=== PATIENT | male | born 1940 | race Caucasian/White ===

== ENCOUNTER 2020-11-30 06:44 | Day surgery (SDC) | payer OTHER ==
[~2020-11-30] VITALS: Ht 172.7 cm; Wt 88.5 kg
[~2020-11-30 06:44] MED LIST: AMIO200T33 PO; APIX2.5T PO; CAR3125T PO; CARV25TA55 PO; FURO40TA4 PO; GABA300C10 PO; POTA1TAB61 PO; SIMV-8 PO
[2020-11-30] MEDS ORDERED: IODIXANOL 320MG/ML 100ML BTL IV ONE (07:33)
[2020-11-30] MEDS ORDERED: LIDOCAINE 2%HCL (LOCAL ANESTH.) INJ 20ML MDV ONE (07:33)
[2020-11-30] MEDS ORDERED: fentaNYL CITRATE 100 MCG/2 ML VL ONE (08:12)
[2020-11-30] MEDS ORDERED: SODIUM CHL 0.9% 0 ML ONE (08:12)
[2020-11-30] MEDS ORDERED: MIDAZOLAM HCL 2MG/2ML 2ml VIAL (1mg/ml) ONE (08:12)
[2020-11-30] MEDS ORDERED: ANGIOMAX 250 MG VIAL IV ONE (08:12)
[2020-11-30] MEDS ORDERED: HYDROcodone-ACET 5/325MG TAB PO PRN (09:30)
[2020-11-30] MEDS ORDERED: ONDANSETRON HCL 4 MG/2 ML VIAL IV PRN (09:30)
[2020-11-30] MEDS ORDERED: ACETAMINOPHEN 500 MG TAB PO PRN (09:30)
== END 2020-11-30 11:35 | disposition home or self-care (01) ==
LOC: CATH 06:44
PROVIDERS: ATTEND Internal Medicine Cardiovascular Disease
DX: R94.39 Abnormal result of other cardiovascular function study (principal); I25.810 Atherosclerosis of coronary artery bypass graft(s) without angina pectoris; I25.5 Ischemic cardiomyopathy; I35.1 Nonrheumatic aortic (valve) insufficiency; G25.81 Restless legs syndrome; I48.0 Paroxysmal atrial fibrillation; E78.5 Hyperlipidemia, unspecified; I25.2 Old myocardial infarction; Z95.5 Presence of coronary angioplasty implant and graft; Z20.822 Contact with and (suspected) exposure to COVID-19; Z95.2 Presence of prosthetic heart valve; Z82.49 Family history of ischemic heart disease and other diseases of the circulatory system; Z87.891 Personal history of nicotine dependence; Z79.01 Long term (current) use of anticoagulants; Z98.890 Other specified postprocedural states; Z79.899 Other long term (current) drug therapy
CPT/HCPCS: 93459; C1760; C1769; C1894; J1644; J2250; J3010; Q9967; U0003; 99152; 99153

== ENCOUNTER 2023-01-06 07:09 | Inpatient (IN) | payer OTHER ==
[~2023-01-06] VITALS: Ht 177.8 cm; Wt 91.0 kg
[~2023-01-06 07:09] MED LIST changes: +GABA-1250 PO; -GABA300C10 PO; -SIMV-8 PO; +SIMV20TA20 PO
[2023-01-06 08:08] LABS: Eosinophils # (auto) 0 10 ^3/uL (0-0.8); Eosinophils % (auto) 0.1 % (0.0-7.0); Hemoglobin 15.9 g/dL (13.5-17.5); Nucleated Red Blood Cells % 0.2 %; Red Cell Distribution Width 14.7 % (11.8-14.3); White Blood Cell 14.2 10^3/uL (4.4-10.8)
[2023-01-06 08:20] VITALS: PULSE 98; RESP 20; O2SAT 92
[2023-01-06 08:21] LABS: Basophils # (auto) 0 10 ^3/uL (0-0.2); Basophils % (auto) 0.3 % (0.0-2.0); Hematocrit 48.3 % (41.0-53.0); Lymphocytes # (auto) 0.9 10 ^3/uL (0.4-5.4); Lymphocytes % (auto) 6.4 % (10.0-50.0); Mean Corpuscular Hemoglobin 32.3 pg (28.0-32.0); Mean Corpuscular Hgb Conc. 32.8 g/dL (32.0-36.0); Mean Corpuscular Volume 98.5 fL (80.0-100.0); Monocytes # (auto) 0.6 10 ^3/uL (0-1.3); Neutrophils # (auto) 12.7 10 ^3/uL (1.6-8.6); Neutrophils % (auto) 89.2 % (37.0-80.0); Red Blood Cells 4.91 10^6/uL (4.5-5.90)
[2023-01-06 08:30] LABS: Alanine Aminotransferase 21 U/L (7-40); Alkaline Phosphatase 58 U/L (46-116); Anion Gap 9 (5-15); Aspartate Aminotransferase 51 U/L (13-40); BUN/Creatinine Ratio 40.2 (10.0-20.0); Blood Urea Nitrogen 37 mg/dL (9-23); Calcium 7.7 mg/dL (8.5-10.1); Carbon Dioxide 23 mmol/L (20-30); Chloride 107 mmol/L (98-107); Glucose 99 mg/dL (74-106); Potassium 4.3 mmol/L (3.5-5.1); Sodium 139 mmol/L (136-145); Total Protein 4.8 g/dL (5.7-8.2)
[2023-01-06] MEDS ORDERED: VANCOMYCIN PER PHARMACY 0 MG IV SCH (09:00)
[2023-01-06] MEDS ORDERED: PIPERACILLIN-TAZOB 3.375GM 100 ML IV ONE (09:00)
[2023-01-06] MEDS ORDERED: SODIUM CHLORIDE 0.9% 2,750 ML IV ONE (09:00)
[2023-01-06] MEDS ORDERED: VANCOMYCIN 1GM/250ML 250 ML IV ONE (09:30)
[2023-01-06 10:05] LABS: Lactic Acid w/Reflex 3.1 mmol/L (0.4-2.0)
[2023-01-06 10:06] LABS: COVID19 ANTIGEN SOFIA FIA POSITIVE (NEGATIVE)
[2023-01-06 10:28] LABS: Rapid Influenza A Negative (Negative); Rapid Influenza B Negative (Negative)
[2023-01-06] MEDS ORDERED: SODIUM CHLORIDE 0.9% 3,000 ML IV ONE (10:30)
[2023-01-06] MEDS ORDERED: DexAMETHasone SOD PHOS 10MG/1ML VIAL INJ IV ONE (10:45)
[2023-01-06] MEDS ORDERED: HYDROcodone-ACET 5/325MG TAB PO PRN (12:15)
[2023-01-06] MEDS ORDERED: MORPHINE SULFATE INJ 2 MG/ml SYRG IV PRN ×2 (12:15)
[2023-01-06] MEDS ORDERED: ACETAMINOPHEN 325 MG TAB PO PRN (12:15)
[2023-01-06] MEDS ORDERED: ONDANSETRON HCL 4 MG/2 ML VIAL IV PRN (12:15)
[2023-01-06] MEDS ORDERED: NITROGLYCERIN 0.4 MG SL TAB SL PRN (12:15)
[2023-01-06] MEDS ORDERED: DOCUSATE SOD 100 MG CAP PO PRN (12:15)
[2023-01-06] MEDS: levoFLOXacin 500MG 100 ML IV SCH (14:02)
[2023-01-06] MEDS: ALBUTEROL SULF HFA 90MCG INH 200DOSE IN SCH ×2 (14:57→22:48)
[2023-01-06 14:58] VITALS: PULSE 77; RESP 18; O2SAT 93
[2023-01-06 15:00] VITALS: PULSE 76; RESP 16; O2SAT 93
[2023-01-06 15:16] VITALS: BP 115/64; PULSE 77; RESP 18; TEMP 98.8; O2SAT 93
[2023-01-06] MEDS ORDERED: hydrALAZINE HCL 20 MG/ML VL IV PRN (16:15)
[2023-01-06] MEDS ORDERED: REMDESIVIR PER PHARMACY 0 ML IV SCH (19:30)
[2023-01-06 20:42] VITALS: PULSE 79; RESP 33; O2SAT 96
[2023-01-06] MEDS: VANCOMYCIN 1GM/250ML 250 ML IV SCH (20:57)
[2023-01-06] MEDS: APIXABAN 2.5 MG TAB PO SCH (21:59)
[2023-01-06] MEDS: CARVEDILOL 3.125 MG TAB PO SCH (22:00)
[2023-01-06] MEDS ORDERED: ATORVASTATIN 20 MG TAB PO SCH (22:00)
[2023-01-06] MEDS: ASCORBIC ACID 500 MG TAB PO SCH (22:06)
[2023-01-06] MEDS: GABAPENTIN 300 MG CAP PO SCH ×2 (22:07→22:09)
[2023-01-06 22:48] VITALS: PULSE 81; RESP 20; O2SAT 88
[2023-01-07 02:00] VITALS: BP 139/104; PULSE 79; RESP 38; O2SAT 91
[2023-01-07] MEDS ORDERED: DOBUTamine 1000MCG/ML 250 ML IV ONE (02:58)
[2023-01-07] MEDS: ALBUTEROL SULF HFA 90MCG INH 200DOSE IN SCH (06:00)
[2023-01-07] MEDS: VANCOMYCIN 1GM/250ML 250 ML IV SCH (06:00)
[2023-01-07] MEDS: CARVEDILOL 3.125 MG TAB PO SCH (07:31)
[2023-01-07] MEDS: levoFLOXacin 500MG 100 ML IV SCH (07:31)
[2023-01-07] MEDS: APIXABAN 2.5 MG TAB PO SCH (07:32)
[2023-01-07] MEDS: ASCORBIC ACID 500 MG TAB PO SCH (07:32)
[2023-01-07] MEDS ORDERED: MULTIPLE VITAMIN TAB PO SCH (10:00)
[2023-01-07] MEDS ORDERED: PANTOPRAZOLE 40 MG/10 ML VIAL INJ IV SCH (10:00)
[2023-01-07] MEDS ORDERED: ZINC SULFATE 220mg CAP or TAB PO SCH (10:00)
[2023-01-07] MEDS ORDERED: DexAMETHasone SOD PHOS 10MG/1ML VIAL INJ IV SCH (10:00)
[2023-01-07] MEDS ORDERED: ENOXAPARIN SOD 40 MG/0.4 ML SYRINGE SC SCH (10:00)
[2023-01-07] MEDS ORDERED: REMDESIVIR 200 MG in NS 210ml LOADING DOSE ADULT IV ONE (15:00)
[2023-01-07] MEDS ORDERED: AMIODARONE 150mg/D5W 100ml AE (BOLUS) IV ONE (19:26)
[2023-01-07] MEDS ORDERED: EPINEPHrine HCL 1 MG/10 ML SYRG IV ONE (19:26)
[2023-01-07] MEDS ORDERED: SODIUM BICARBONATE 8.4% INJ 50ML SYRINGE IV ONE (19:26)
[2023-01-07] MEDS ORDERED: CALCIUM CHLOR(10%) 100MG/ML 10ML SYRINGE IV ONE (19:26)
[2023-01-08] MEDS ORDERED: AMIODARONE HCL 200 MG TAB PO SCH (10:00)
[2023-01-08] MEDS ORDERED: REMDESIVIR 100mg 100 MG in SODIUM CHL 0.9% 230 ML IV SCH (15:00)
== END 2023-01-07 03:09 | DRG 177 ==
LOC: ER 07:09 → TELE 12:17
PROVIDERS: ADMIT Internal Medicine; ATTEND Internal Medicine
PROC: XW033E5 Introduction of Remdesivir Anti-infective into Peripheral Vein, Percutaneous Approach, New Technology Group 5 (ICD-10-PCS; principal; 2023-01-06)
PROC: 5A12012 Performance of Cardiac Output, Single, Manual (ICD-10-PCS; 2023-01-07)
DX: U07.1 COVID-19 (principal); J12.82 Pneumonia due to coronavirus disease 2019; J96.01 Acute respiratory failure with hypoxia; E87.20 Acidosis, unspecified; N17.9 Acute kidney failure, unspecified; I13.0 Hypertensive heart and chronic kidney disease with heart failure and stage 1 through stage 4 chronic kidney disease, or unspecified chronic kidney disease; I25.5 Ischemic cardiomyopathy; I25.10 Atherosclerotic heart disease of native coronary artery without angina pectoris; I49.9 Cardiac arrhythmia, unspecified; G25.81 Restless legs syndrome; I48.0 Paroxysmal atrial fibrillation; I50.9 Heart failure, unspecified; N18.9 Chronic kidney disease, unspecified; Z79.01 Long term (current) use of anticoagulants; Z95.1 Presence of aortocoronary bypass graft; Z95.2 Presence of prosthetic heart valve
CPT/HCPCS: 36415; 71045; 80053; 82728; 83605; 84484; 85025; 85379; 86141; 87040; 87426; 87804; 92950; 93005; 93970; 94640; 96365; 96368; 96375; G0378; J1100; J1956; J2543